=== PATIENT | female | born 1960 | race Two or more races ===

== ENCOUNTER → 2025-07-17 | Day surgery (SDC) | payer MEDICAID ==
[~2025-07-17] VITALS: Ht 162.6 cm; Wt 95.3 kg
[~2025-07-17] MED LIST: CHOL1TAB28 PO; CYAN-17 PO; KETAMINE 50mg/ML 1ml syringe ONE; LOSA-535 PO; METF-370 PO; MIDAZOLAM HCL 2MG/2ML 2ml VIAL (1mg/ml) ONE; ONDANSETRON HCL 4 MG/2 ML VIAL ONE; PROPOFOL 10 MG/ML 20 ML IV ONE; SODIUM CHLORIDE LOCK 10 ML ONE; fentaNYL CITRATE 100 MCG/2 ML VL ONE
[2025-07-17 14:08] VITALS: TEMP 97.3
[2025-07-17 15:33] VITALS: PULSE 68; RESP 17; O2SAT 100
--- NOTE | 2025-07-17 15:59 | DVHOP2 ---
Operative Report DATE OF OPERATION: 07/17/25 PROCEDURE: Diagnostic Colonoscopy. PREOPERATIVE INDICATION: The patient is a 64 -year-old female undergoing colonoscopy for colon cancer screening POSTOPERATIVE DIAGNOSES: 1. Trace internal hemorrhoids otherwise completely normal colonoscopy examination up to the cecum and terminal ileum PROCEDURE PERFORMED BY: Tico Han M.D. SCOPE: Olympus videocolonoscope. ASA CLASS: 2. PREOPERATIVE MEDICATIONS: Mac sedation, Dr. Rosario PROCEDURE IN DETAIL: After obtaining an informed consent, the patient was placed on left lateral decubitus position. She was then sedated with the above medications. A rectal examination was performed that was normal. The colonoscope was then passed through the anus into the rectosigmoid and through the descending, transverse, and ascending colon up to the cecum with visualization of the appendiceal orifice, base of the cecum and the ileo cecal valve. The colonoscope was then withdrawn. Distal 5-10 cm of the terminal ileum were normal No polyps or masses were seen. There was no colitis or diverticular disease. On retroflexion and straight on view she had trace internal hemorrhoids The patient tolerated the procedure well without difficulty. WITHDRAWAL TIME: 6 minutes QUALITY OF THE PREP: [place] Bowel Prep score: 9. COMPLICATIONS : None SPECIMENS: None DISPOSITION: Stable D/C to home PLAN: 1. Repeat colonoscopy in 10 years 2. Resume GI soft diet advance as tolerated 3. Outpatient follow up with me in 4-6 weeks to review results and discuss further management TICO HAN MD Jul 17, 2025 15:59
[2025-07-17 17:18] VITALS: BP 150/86; PULSE 67; RESP 12; O2SAT 96
== END | disposition home or self-care (01) ==
LOC: GI 12:04
PROVIDERS: ATTEND Internal Medicine Gastroenterology
DX: Z12.11 Encounter for screening for malignant neoplasm of colon (principal); Z79.84 Long term (current) use of oral hypoglycemic drugs; Z79.899 Other long term (current) drug therapy; Z98.890 Other specified postprocedural states
CPT/HCPCS: 45378; 82962; J2250; J2405; J2704; J3010; J7030